=== PATIENT | female | born 1965 | race African-American/Black ===

== ENCOUNTER 2016-09-05 18:07 | Emergency (ER) | payer MEDICARE ==
[~2016-09-05] VITALS: Ht 162.6 cm; Wt 90.0 kg
[~2016-09-05 18:07] MED LIST: CYCL-36 PO; HYDR-3129 PO; NAPR250T57 PO; NITR-29 PO
[2016-09-05 18:09] VITALS: BP 186/90; PULSE 96; RESP 12; TEMP 98.6; O2SAT 98
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
== END 2016-09-05 21:43 | disposition home or self-care (01) ==
LOC: NEPB 18:07
DX: H57.8 Other specified disorders of eye and adnexa (principal); Z86.2 Personal history of diseases of the blood and blood-forming organs and certain disorders involving the immune mechanism; Z87.42 Personal history of other diseases of the female genital tract; Z77.098 Contact with and (suspected) exposure to other hazardous, chiefly nonmedicinal, chemicals
CPT/HCPCS: 99283